=== PATIENT | female | born 1995 | race African-American/Black ===

== ENCOUNTER 2016-07-10 19:07 | Emergency (ER) | payer OTHER ==
[~2016-07-10 19:07] MED LIST: DOXY100T9 PO; METR500T PO
[2016-07-10 19:11] VITALS: BP 111/63
--- NOTE | 2016-07-10 19:42 | PHYS DOC ---
Past Medical History Past Medical History: No Pertinent History Past Surgical History: No Surgical History Alcohol Use: None Drug Use: None Adult General Chief Complaint Chief Complaint: VAGINAL PROBLEM HPI HPI Patient is a 20 year old female who presents with odorous vaginal discharge that began yesterday. Patient is concerned about STD and would like to be tested and treated. She would also like her IUD removed. She states she is in a cort[place] and would like this to take less than 1 hour. She works at [employer]. Review of Systems Review of Systems Constitutional: Denies fever or chills [] Eyes: Denies change in visual acuity, redness, or eye pain [] HENT: Denies nasal congestion or sore throat [] Respiratory: Denies cough or shortness of breath [] Cardiovascular: No additional information not addressed in HPI [] GI: Vaginal discharge : Denies dysuria or hematuria [] Musculoskeletal: Denies back pain or joint pain [] Integument: Denies rash or skin lesions [] Neurologic: Denies headache, focal weakness or sensory changes [] Endocrine: Denies polyuria or polydipsia [] Current Medications Current Medications Current Medications Medications (Trade) Dose Ordered Sig/Larissa Start Time Stop Time Status Last Admin Dose Admin Azithromycin (Zithromax) 1,000 mg 1X ONCE 07/10/16 19:45 07/10/16 19:46 DC 07/10/16 19:45 1,000 MG Ceftriaxone Sodium (Rocephin Im) 250 mg 1X ONCE 07/10/16 19:45 07/10/16 19:46 DC 07/10/16 19:45 250 MG Metronidazole (Flagyl) 2,000 mg 1X ONCE 07/10/16 19:45 07/10/16 19:46 DC 07/10/16 19:45 2,000 MG Allergies Allergies Allergies Coded Allergies Type Severity Reaction Last Updated Verified No Known Drug Allergies 08/08/13 No Physical Exam Physical Exam Constitutional: Well developed, well nourished, no acute distress, non-toxic appearance. [] HENT: Normocephalic, atraumatic, bilateral external ears normal, oropharynx moist, no oral exudates, nose normal. [] Eyes: PERRLA, EOMI, conjunctiva normal, no discharge. [] Neck: Normal range of motion, no tenderness, supple, no stridor. [] Cardiovascular:Heart rate regular rhythm, no murmur [] Lungs & Thorax: Bilateral breath sounds clear to auscultation [] Abdomen: Bowel sounds normal, soft, no tenderness, no masses, no pulsatile masses. [] Pelvic exam Left labia has mild swelling suspicious for Bartholin's cyst, patient is denying stating is probably a razor burn. Cervix is not well visualized. No CMT. mild amount of clear white vaginal discharge in exam. No adnexal tenderness. Skin: Warm, dry, no erythema, no rash. [] Back: No tenderness, no CVA tenderness. [] Extremities: No tenderness, no cyanosis, no clubbing, ROM intact, no edema. [] Neurologic: Alert and oriented X 3, normal motor function, normal sensory function, no focal deficits noted. [] Psychologic: Affect normal, judgement normal, mood normal. [] Current Patient Data Vital Signs Vital Signs Date Time Temp Pulse Resp B/P Pulse Ox O2 Delivery O2 Flow Rate FiO2 07/10/16 19:11 78 18 98 Room Air Lab Values Laboratory Tests Test 07/10/16 19:20 Urine Collection Type Unknown Urine Color Yellow Urine Clarity Cloudy Urine pH 5.5 Urine Specific [place] >=1.030 Urine Protein 100mg/dL (NEG-TRACE) Urine Glucose (UA) Negativemg/dL (NEG) Urine Ketones (Stick) Negativemg/dL (NEG) Urine Blood Negative (NEG) Urine Nitrite Negative (NEG) Urine Bilirubin Negative (NEG) Urine Urobilinogen Dipstick 0.2mg/dL (0.2 mg/dL) Urine Leukocyte Esterase Trace (NEG) Urine RBC 0/HPF (0-2) Urine WBC 11-20/HPF (0-4) Urine Squamous Epithelial Cells Many/LPF Urine Bacteria Mod/HPF (0-FEW) Urine Mucus Marked/LPF Microbiology 07/10/16 Wet Prep - Final, Complete EKG EKG [] Radiology/Procedures Radiology/Procedures [] Course & Med Decision Making Course & Med Decision Making Pertinent Labs and Imaging studies reviewed. (See chart for details) Patient is in the ED with vaginal discharge and concern for STDs. She is in a hurry stating she has to be seen and treated in one hour or less. We informed her we send specimens to lab for wet prep and UA and its up to them to do the test within reasonable time. She works at [employer]. She tested positive for Trichomonas. She was treated with azithromycin, Flagyl and Rocephin. She wanted her IUD removed. Informed her she needs to see her OB/ COUNSELING SPECIALIST for this. Urine analysis is negative for infection. Educated on safe sex practices. Dragon Disclaimer Dragon Disclaimer This electronic medical record was generated, in whole or in part, using a voice recognition dictation system. Departure Departure Impression: Primary Impression: Trichomonal vaginitis Disposition: HOME, SELF-CARE Condition: STABLE Referrals: NO PCP (PCP) JENA FUNES MD Follow-up in one week Patient Instructions: Sexually Transmitted Disease Additional Instructions: You were seen for STD concern, you tested positive for trichomonas and were. Please contact your sex partners, let them know you were treated for STDs and ask them to seek treatment too. Do not have sex for week. Follow-up with your OB /COUNSELING SPECIALIST to have the IUD removed if still interested in removing it. MERRILL ULRICH APRN Jul 10, 2016 19:42
[2016-07-10 19:45] LABS: BILIRUBIN,URINE NEGATIVE (NEG); GLUCOSE,URINE NEGATIVE (NEG); NITRITE,URINE NEGATIVE (NEG); PH,URINE 5.5; PROTEIN,URINE 100 mg/dL (NEG-TRACE); UROBILINOGEN,URINE 0.2 mg/dL (0.2 mg/dL)
[2016-07-10] MEDS ORDERED: METRONIDAZOLE 500 MG TABLET. PO ONE (19:45)
[2016-07-10] MEDS ORDERED: CEFTRIAXONE IM 250 MG VIAL. IM ONE (19:45)
[2016-07-10] MEDS ORDERED: AZITHROMYCIN 250 MG TABLET. PO ONE (19:45)
[2016-07-10 19:56] LABS: BACTERIA,URINE MOD /HPF (0-FEW); RBC,URINE 0 /HPF (0-2); SQUAMOUS EPITHELIAL CELL,UR MANY /LPF
== END 2016-07-10 20:06 | disposition home or self-care (01) ==
LOC: ER 19:07
DX: A59.01 Trichomonal vulvovaginitis (principal)
CPT/HCPCS: 81001; 81025; 87491; 87591; 96372; 99284; J0696; Q0111; Q0144

== ENCOUNTER 2016-07-20 18:46 | Emergency (ER) | payer OTHER ==
[~2016-07-20] VITALS: Ht 167.6 cm; Wt 63.5 kg
[2016-07-20] MEDS ORDERED: IV NORMAL SALINE 1000ML BAG 1,000 ML IV ONE (19:30)
[2016-07-20] MEDS ORDERED: ONDANSETRON PF 4 MG/2 ML VIAL. IV ONE (19:30)
[2016-07-20 19:33] LABS: BILIRUBIN,URINE NEGATIVE (NEG); GLUCOSE,URINE NEGATIVE (NEG); NITRITE,URINE NEGATIVE (NEG); PROTEIN,URINE 100 mg/dL (NEG-TRACE); UROBILINOGEN,URINE 0.2 mg/dL (0.2 mg/dL)
[2016-07-20 19:45] LABS: BACTERIA,URINE 0 /HPF (0-FEW); RBC,URINE 0 /HPF (0-2); SQUAMOUS EPITHELIAL CELL,UR MOD /LPF; WBC,URINE 20-40 /HPF (0-4)
[2016-07-20 19:49] LABS: CALCIUM 9.6 mg/dL (8.5-10.1); CREATININE 1.1 mg/dL (0.6-1.0); GFR 77.4; POTASSIUM 3.7 mmol/L (3.5-5.1)
[2016-07-20] MEDS ORDERED: CIPR250T30 PO (20:01)
[2016-07-20] MEDS ORDERED: ONDA4TAB10 SL (20:01)
--- NOTE | 2016-07-20 20:01 | PHYS DOC ---
Past Medical History Past Medical History: No Pertinent History Past Surgical History: No Surgical History Alcohol Use: None Drug Use: None Adult General Chief Complaint Chief Complaint: ABDOMINAL PAIN HPI HPI Patient is a 20 year old female who presents with diarrhea. The patient reports onset of symptoms this morning, numerous episodes of loose nonbloody stools today, associated with nausea & generalized abdominal discomfort. Denies fevers/chills, vomiting, dysuria/hematuria. Denies history of abdominal surgeries. Previously healthy, no PCP. Review of Systems Review of Systems Constitutional: Denies fever or chills Eyes: Denies change in visual acuity HENT: Denies nasal congestion or sore throat Respiratory: Denies cough or shortness of breath Cardiovascular: Denies chest pain or edema GI: Reports abdominal pain, nausea, and diarrhea, denies vomiting, bloody stools : Denies dysuria or hematuria Musculoskeletal: Denies back pain or joint pain Integument: Denies rash or skin lesions Neurologic: Denies headache, focal weakness or sensory changes Current Medications Current Medications Current Medications Medications (Trade) Dose Ordered Sig/Larissa Start Time Stop Time Status Last Admin Dose Admin Ondansetron HCl (Zofran) 4 mg 1X ONCE 07/20/16 19:30 07/20/16 19:31 DC 07/20/16 19:29 4 MG Sodium Chloride (Iv Sodium Chloride 0.9% 1000ml Bag) 1,000 ml @ 1,000 mls/hr 1X ONCE 07/20/16 19:30 07/20/16 20:29 DC 07/20/16 19:28 1,000 MLS/HR Allergies Allergies Allergies Coded Allergies Type Severity Reaction Last Updated Verified No Known Drug Allergies 08/08/13 No Physical Exam Physical Exam Constitutional: Well developed, well nourished, no acute distress, non-toxic appearance. HENT: Normocephalic, atraumatic, bilateral external ears normal, oropharynx moist, nose normal. Eyes: PERRLA, EOMI, conjunctiva normal, no discharge. Neck: supple, no stridor. Cardiovascular: RRR, no murmurs, no edema. Lungs & Thorax: LCTAB, no wheezing, no respiratory distress. Abdomen: normal bowel sounds, soft, nontender, no rebound/guarding, no masses or pulsatile masses, nondistended. Skin: Warm, dry, no erythema, no rash. Back: No CVA tenderness. Extremities: No tenderness, no edema. Neurologic: Alert and oriented X 3, no focal deficits noted. Psychologic: Affect normal, judgement normal, mood normal. Current Patient Data Vital Signs Vital Signs Date Time Temp Pulse Resp B/P Pulse Ox O2 Delivery O2 Flow Rate FiO2 07/20/16 20:25 88 18 122/71 100 Room Air 07/20/16 19:00 99.4 99.4 Lab Values Laboratory Tests Test 07/20/16 18:07 07/20/16 19:00 POC Urine HCG, Qualitative Hcg negative (Negative) Urine Collection Type Unknown Urine Color Yellow Urine Clarity Clear Urine pH 6.0 Urine Specific [place] 1.025 Urine Protein 100mg/dL (NEG-TRACE) Urine Glucose (UA) Negativemg/dL (NEG) Urine Ketones (Stick) Negativemg/dL (NEG) Urine Blood Negative (NEG) Urine Nitrite Negative (NEG) Urine Bilirubin Negative (NEG) Urine Urobilinogen Dipstick 0.2mg/dL (0.2 mg/dL) Urine Leukocyte Esterase Small (NEG) Urine RBC 0/HPF (0-2) Urine WBC 20-40/HPF (0-4) Urine Squamous Epithelial Cells Mod/LPF Urine Transitional Epithelial Cells Few/LPF Urine Bacteria 0/HPF (0-FEW) Urine Mucus Marked/LPF Sodium Level 139mmol/L (136-145) Potassium Level 3.7mmol/L (3.5-5.1) Chloride Level 102mmol/L (98-107) Carbon Dioxide Level 28mmol/L (21-32) Anion Gap 9 (6-14) Blood Urea Nitrogen 12mg/dL (7-20) Creatinine 1.1mg/dL (0.6-1.0) H Estimated GFR (Cockcroft-Gault) 77.4 Glucose Level 95mg/dL (70-99) Calcium Level 9.6mg/dL (8.5-10.1) Laboratory Tests 07/20/16 19:00 EKG EKG [] Radiology/Procedures Radiology/Procedures [] Course & Med Decision Making Course & Med Decision Making Pertinent Labs and Imaging studies reviewed. (See chart for details) The patient presents with diarrhea. No focal abdominal pain on exam. Mildly tachycardic upon arrival. Gave IV fluids and Zofran. Urine specimen been contaminated but suggestive of UTI, we'll treat with her presenting symptoms. She felt better after treatment here, able to tolerate oral intake. She was comfortable with discharge home. Gave prescriptions for Cipro and Zofran. Recommend rest, by mouth hydration with clear liquids, follow-up with primary care physician in 2-3 days if not improving, gave referral to Dr. Reeder. Return to the emergency department for high fever, severe pain, uncontrolled vomiting, any otherwise worsening condition. Discharged home in stable condition. [] Dragon Disclaimer Dragon Disclaimer This electronic medical record was generated, in whole or in part, using a voice recognition dictation system. Departure Departure Impression: Primary Impression: Nausea & vomiting Additional Impression: Urinary tract infection Disposition: HOME, SELF-CARE Condition: STABLE Referrals: NO PCP (PCP) AJAY REEDER MD Patient Instructions: Diarrhea, [id number], Nausea and Vomiting, [id number] , Urinary Tract Infection, [id number] Additional Instructions: You were seen in the emergency department today for diarrhea. The lab tests did not show any significant problems. You do have a urinary tract infection. Please take the prescribed antibiotic. Use Zofran as needed for nausea. Drink small sips of clear liquids to stay hydrated. Follow-up with Dr. Reeder in the primary care clinic in 2-3 days if not improving. Return to the emergency department for high fever, severe abdominal pain, uncontrolled vomiting, any otherwise worsening condition. Scripts Ciprofloxacin Hcl (Cipro)250 Mg Tablet1 Tab PO BID #6 TAB Prov:OMAYRA CHILDRESS MD 07/20/16 Ondansetron (Zofran Odt)4 Mg Tab.rapdis1 Tab SL Q8HRS PRN NAUSEA #10 TAB Prov:OMAYRA CHILDRESS MD 07/20/16 Problem Qualifiers OMAYRA CHILDRESS MD Jul 20, 2016 20:01
[2016-07-20 20:25] VITALS: BP 122/71
== END 2016-07-20 20:31 | disposition home or self-care (01) ==
LOC: ER 18:46
DX: N39.0 Urinary tract infection, site not specified (principal); R19.7 Diarrhea, unspecified
CPT/HCPCS: 36415; 80048; 81001; 81025; 87086; 96361; 96374; 99284; J2405; J7030

== ENCOUNTER 2016-08-10 12:04 | Emergency (ER) | payer OTHER ==
[~2016-08-10] VITALS: Ht 175.3 cm; Wt 60.1 kg
[~2016-08-10 12:04] MED LIST changes: +CIPR250T30 PO; +ONDA4TAB10 SL
[2016-08-10 12:20] VITALS: BP 109/71
[2016-08-10] MEDS ORDERED: ONDA4TAB10 SL (12:23)
--- NOTE | 2016-08-10 12:23 | PHYS DOC ---
Past Medical History Past Medical History: No Pertinent History Past Surgical History: No Surgical History Alcohol Use: None Drug Use: None Adult General Chief Complaint Chief Complaint: NAUSEA/VOMITING/DIARRHA HPI HPI Patient is a 20 year old female who presents with 1 episode of nonbloody nonbilious emesis associated with an episode of nonbloody diarrhea that started just prior to arrival. She has mild general abdominal bubbling and cramping. She notes some mild current nausea. She denies dysuria, hematuria, constipation , fever or chills, sick contacts, recent travel. Review of Systems Review of Systems Constitutional: Denies fever or chills [] Eyes: Denies change in visual acuity, redness, or eye pain [] HENT: Denies nasal congestion or sore throat [] Respiratory: Denies cough or shortness of breath [] Cardiovascular: No additional information not addressed in HPI [] GI: Denies bloody stools or bloody emesis [] : Denies dysuria or hematuria [] Musculoskeletal: Denies back pain or joint pain [] Integument: Denies rash or skin lesions [] Neurologic: Denies headache, focal weakness or sensory changes [] Endocrine: Denies polyuria or polydipsia [] Current Medications Current Medications Current Medications Medications (Trade) Dose Ordered Sig/Larissa Start Time Stop Time Status Last Admin Dose Admin Ondansetron HCl (Zofran Odt) 4 mg 1X ONCE 08/10/16 12:30 08/10/16 12:31 DC 08/10/16 12:38 4 MG Allergies Allergies Allergies Coded Allergies Type Severity Reaction Last Updated Verified No Known Drug Allergies 08/08/13 No Physical Exam Physical Exam Constitutional: Well developed, well nourished, no acute distress, non-toxic appearance. [] HENT: Normocephalic, atraumatic, bilateral external ears normal, oropharynx moist, nose normal. [] Eyes: PERRLA, EOMI. [] Neck: Normal range of motion, supple. [] Cardiovascular:Heart rate regular rhythm [] Lungs & Thorax: Bilateral breath sounds clear to auscultation [] Abdomen: Bowel sounds normal, soft, no tenderness. [] Skin: Warm, dry, no erythema, no rash. [] Back: No tenderness, no CVA tenderness. [] Extremities: No tenderness, ROM intact, no edema. [] Neurologic: Alert and oriented X 3, normal motor function, normal sensory function, no focal deficits noted. [] Psychologic: Affect normal, judgement normal, mood normal. [] Current Patient Data Vital Signs Vital Signs Date Time Temp Pulse Resp B/P (MAP) Pulse Ox O2 Delivery O2 Flow Rate FiO2 08/10/16 12:20 98.2 77 16 98 Room Air 98.2 Lab Values Laboratory Tests Test 08/10/16 11:29 POC Urine HCG, Qualitative Hcg negative (Negative) Course & Med Decision Making Course & Med Decision Making Discussed supportive care. Return precautions given. She understands and agrees with plan. Dragon Disclaimer Dragon Disclaimer This electronic medical record was generated, in whole or in part, using a voice recognition dictation system. Departure Departure Impression: Primary Impression: Nausea vomiting and diarrhea Disposition: 01 HOME, SELF-CARE Condition: STABLE Referrals: NO PCP (PCP) Patient Instructions: Nausea and Vomiting, [id number] Additional Instructions: Take zofran as needed for nausea. Take Imodium as needed for diarrhea. Drink liquids to stay hydrated. Follow up with your primary care doctor. Return for any concerns. Scripts Ondansetron (ZOFRAN ODT) 4 Mg Tab.rapdis 1 TAB SL Q8HRS Y for NAUSEA, #10 TAB Prov: Gabriella GOMES MD 08/10/16 Gabriella GOMES MD August 10, 2016 12:23
[2016-08-10] MEDS ORDERED: ONDANSETRON ODT 4 MG TAB.RAPDIS. PO ONE (12:30)
== END 2016-08-10 12:38 | disposition home or self-care (01) ==
LOC: ER 12:38
DX: R11.2 Nausea with vomiting, unspecified (principal); R19.7 Diarrhea, unspecified
CPT/HCPCS: 84703; 99283; Q0162; 81025

== ENCOUNTER 2016-12-07 08:41 | Emergency (ER) | payer OTHER ==
[~2016-12-07] VITALS: Ht 165.1 cm; Wt 61.2 kg
--- NOTE | 2016-12-07 09:27 | PHYS DOC ---
Past Medical History Past Medical History: No Pertinent History Past Surgical History: No Surgical History Alcohol Use: None Drug Use: None Adult General Chief Complaint Chief Complaint: VAGINAL PROBLEM HPI HPI Patient is a 20 year old male who presents with vaginal discharge for the past several days. Vaginal discharge is described as light hannah malodorous. It is associated with mild cramping and burning. Measuring frequency and urgency. No flank pain, hematuria, nausea vomiting or sweats. Patient's last menstrual period was one week ago. Patient is not currently on control. Patient has previously been treated for bacterial vaginosis and Trichomonas mydriasis. She is concerned about possible STD exposure and is in the emergency department with her partner who is also being treated. Review of Systems Review of Systems ROS as per HPI. All other ROS are negative. Current Medications Current Medications Current Medications Medications (Trade) Dose Ordered Sig/Larissa Start Time Stop Time Status Last Admin Dose Admin Azithromycin (Zithromax) 1,000 mg 1X ONCE 12/07/16 10:30 12/07/16 10:31 DC 12/07/16 10:40 1,000 MG Ceftriaxone Sodium (Rocephin Im) 250 mg 1X ONCE 12/07/16 10:30 12/07/16 10:31 DC 12/07/16 10:38 250 MG Allergies Allergies Allergies Coded Allergies Type Severity Reaction Last Updated Verified No Known Drug Allergies 08/08/13 No Physical Exam Physical Exam Constitutional: Well developed, well nourished, no acute distress, non-toxic appearance. [] HENT: Normocephalic, atraumatic, bilateral external ears normal, oropharynx moist, no oral exudates, nose normal. [] Eyes: PERRLA, EOMI, conjunctiva normal, no discharge. [] Neck: Normal range of motion, no tenderness, supple, no stridor. [] Cardiovascular:Heart rate regular rhythm, no murmur [] Lungs & Thorax: Bilateral breath sounds clear to auscultation [] Abdomen: Bowel sounds normal, soft, no tenderness. , no external lesions, vaginal start, thick hannah copious, malodorous. Cervix closed, no lesions. [] Skin: Warm, dry, no erythema, no rash. [] Back: No tenderness. [] Extremities: No tenderness, no cyanosis, no clubbing, ROM intact, no edema. [] Neurologic: Alert and oriented X 3, normal motor function, normal sensory function, no focal deficits noted. [] Psychologic: Affect normal, judgement normal, mood normal. [] Current Patient Data Vital Signs Vital Signs Date Time Temp Pulse Resp B/P (MAP) Pulse Ox O2 Delivery O2 Flow Rate FiO2 12/07/16 10:41 66 18 118/83 (95) 98 Room Air Lab Values Laboratory Tests Test 12/07/16 09:24 POC Urine HCG, Qualitative Hcg negative (Negative) Microbiology 12/07/16 Wet Prep - Final, Complete EKG EKG [] Radiology/Procedures Radiology/Procedures [] Course & Med Decision Making Course & Med Decision Making Pertinent Labs and Imaging studies reviewed. (See chart for details) [Clue cells present on wet prep. Empiric treatment for possible STD exposure provided. Vital discharge patient home with prescription for Flagyl with PCP/ health Department follow-up. Return precautions reviewed.] Dragon Disclaimer Dragon Disclaimer This electronic medical record was generated, in whole or in part, using a voice recognition dictation system. Departure Departure Impression: Primary Impression: Bacterial vaginosis Disposition: 01 HOME, SELF-CARE Condition: GOOD Referrals: NO PCP (PCP) Patient Instructions: Bacterial Vaginosis, [id number] Additional Instructions: You were evaluated emergency department for vaginal discharge. Initial results show bacterial vaginosis an over growth of normal vaginal bacteria. MARIUSZ ALTAMIRANO DO Dec 07, 2016 09:27
[2016-12-07] MEDS ORDERED: AZITHROMYCIN 250 MG TABLET. PO ONE (10:30)
[2016-12-07] MEDS ORDERED: cefTRIAXone IM 250 MG VIAL IM ONE (10:30)
[2016-12-07 10:41] VITALS: BP 118/83
== END 2016-12-07 10:58 | disposition home or self-care (01) ==
LOC: ER 08:41
DX: N76.0 Acute vaginitis (principal); B96.89 Other specified bacterial agents as the cause of diseases classified elsewhere; R35.0 Frequency of micturition; R39.15 Urgency of urination
CPT/HCPCS: 81025; 87491; 87591; 96372; 99284; J0696; Q0111; Q0144

== ENCOUNTER 2017-03-03 19:29 | Emergency (ER) | payer OTHER ==
[2017-03-03 20:01] VITALS: BP 123/56
[2017-03-03 20:19] LABS: BILIRUBIN,URINE NEGATIVE (NEG); GLUCOSE,URINE NEGATIVE (NEG); NITRITE,URINE NEGATIVE (NEG); PROTEIN,URINE 30 mg/dL (NEG-TRACE); UROBILINOGEN,URINE 0.2 mg/dL (0.2 mg/dL)
[2017-03-03 20:29] LABS: BACTERIA,URINE FEW /HPF (0-FEW); RBC,URINE 0 /HPF (0-2); SQUAMOUS EPITHELIAL CELL,UR MOD /LPF
[2017-03-03 20:34] LABS: NEG OBC UR NEG; POS OBC UR POS
--- NOTE | 2017-03-03 20:54 | PHYS DOC ---
Past Medical History Past Medical History: No Pertinent History Past Surgical History: No Surgical History Alcohol Use: None Drug Use: None Adult General Chief Complaint Chief Complaint: ABDOMINAL PAIN [facility] HPI Patient is a 21 year old female who presents with brought hour history of abdominal pain that has since resolved and she has no complaints of abdominal pain at this time. Positive test at home with last menstrual period approximately 6 weeks ago. History . Denies any vaginal bleeding or discharge. Reports occasional nausea but no vomiting or diarrhea. No fever. Review of Systems Review of Systems Constitutional: Denies fever or chills [] Eyes: Denies change in visual acuity, redness, or eye pain [] HENT: Denies nasal congestion or sore throat [] Respiratory: Denies cough or shortness of breath [] Cardiovascular: No additional information not addressed in HPI [] GI: Denies abdominal pain, nausea, vomiting, bloody stools or diarrhea [] : Denies dysuria or hematuria [] Musculoskeletal: Denies back pain or joint pain [] Integument: Denies rash or skin lesions [] Neurologic: Denies headache, focal weakness or sensory changes [] Endocrine: Denies polyuria or polydipsia [] All other systems were reviewed and found to be within normal limits, except as documented in this note. Allergies Allergies Allergies Coded Allergies Type Severity Reaction Last Updated Verified No Known Drug Allergies 08/08/13 No Physical Exam Physical Exam Constitutional: Well developed, well nourished, no acute distress, non-toxic appearance. [] HENT: Normocephalic, atraumatic, bilateral external ears normal, oropharynx moist, no oral exudates, nose normal. [] Eyes: PERRLA, EOMI, conjunctiva normal, no discharge. [] Neck: Normal range of motion, no tenderness, supple, no stridor. [] Cardiovascular:Heart rate regular rhythm, no murmur [] Lungs & Thorax: Bilateral breath sounds clear to auscultation [] Abdomen: Bowel sounds normal, soft, no tenderness, no masses, no pulsatile masses. Completely nontender to palpation in the pelvis or right upper quadrant. [] Skin: Warm, dry, no erythema, no rash. [] Back: No tenderness, no CVA tenderness. [] Extremities: No tenderness, no cyanosis, no clubbing, ROM intact, no edema. [] Neurologic: Alert and oriented X 3, normal motor function, normal sensory function, no focal deficits noted. [] Psychologic: Affect normal, judgement normal, mood normal. [] Current Patient Data Vital Signs Vital Signs Date Time Temp Pulse Resp B/P (MAP) Pulse Ox O2 Delivery O2 Flow Rate FiO2 03/03/17 20:01 98.6 78 18 123/56 (78) 98 98.6 03/03/17 19:52 Room Air Lab Values Laboratory Tests Test 03/03/17 19:31 Urine Collection Type Unknown Urine Color Yellow Urine Clarity Clear Urine pH 6.0 Urine Specific [place] 1.020 Urine Protein 30 mg/dL (NEG-TRACE) Urine Glucose (UA) Negative mg/dL (NEG) Urine Ketones (Stick) Negative mg/dL (NEG) Urine Blood Negative (NEG) Urine Nitrite Negative (NEG) Urine Bilirubin Negative (NEG) Urine Urobilinogen Dipstick 0.2 mg/dL (0.2 mg/dL) Urine Leukocyte Esterase Negative (NEG) Urine RBC 0 /HPF (0-2) Urine WBC 1-4 /HPF (0-4) Urine Squamous Epithelial Cells Mod /LPF Urine Bacteria Few /HPF (0-FEW) Urine Mucus Marked /LPF Urine Test Positive (NEG) EKG EKG [] Radiology/Procedures Radiology/Procedures [] Course & Med Decision Making Course & Med Decision Making Pertinent Labs and Imaging studies reviewed. (See chart for details) Based on her physical exam with lack of any abdominal findings and history of no bleeding or discharge: no indication for pelvic sono at this moment in time. [Patient failed to wait for her urinalysis results and reexamination of her abdomen which may have changed her workup.] Dragon Disclaimer Dragon Disclaimer This electronic medical record was generated, in whole or in part, using a voice recognition dictation system. Departure Departure Impression: Primary Impression: Pelvic pain Additional Impression: Disposition: 01 HOME, SELF-CARE Condition: STABLE Referrals: NO PCP (PCP) Patient Instructions: Pelvic Pain, Female, [id number], Problem Qualifiers NANY HOUSER MD Mar 03, 2017 20:54
== END 2017-03-03 20:39 | disposition home or self-care (01) ==
LOC: ER 19:29
DX: O26.891 Other specified pregnancy related conditions, first trimester (principal); R10.2 Pelvic and perineal pain; R11.0 Nausea; R10.11 Right upper quadrant pain; Z3A.01 Less than 8 weeks gestation of pregnancy
CPT/HCPCS: 81001; 81025; 99284

== ENCOUNTER 2017-07-16 07:12 | Emergency (ER) | payer OTHER | END 2017-07-16 07:40 | disposition home or self-care (01) | LOC: ER 07:12 | DX: O98.812 Other maternal infectious and parasitic diseases complicating pregnancy, second trimester (principal); B37.3 Candidiasis of vulva and vagina; Z3A.26 26 weeks gestation of pregnancy | CPT/HCPCS: 99283 ==

== ENCOUNTER 2017-12-08 10:26 | Emergency (ER) | payer OTHER ==
[~2017-12-08] VITALS: Ht 165.1 cm; Wt 71.2 kg
[~2017-12-08 10:26] MED LIST changes: +MICO1KIT75 VG
[2017-12-08 12:09] VITALS: BP 122/59
[2017-12-08] MEDS ORDERED: METR500T8 PO (12:20)
--- NOTE | 2017-12-08 12:21 | PHYS DOC ---
Past Medical History Past Medical History: STD Past Surgical History: No Surgical History Alcohol Use: None Drug Use: None Adult General Chief Complaint Chief Complaint: SEXUALLY TRANSMITTED DISEASE HPI HPI Patient is a 21 year old female who presents with history of BV and was just treated for BV and Yeast by her doctor at with the name of Dr. Chavez. Patient states she still at same fishy odor smell she called her doctor today but her doctor had not called her back so she got impatient. Patient states that her doctor told her that if it didn't go away to call and go back. Review of Systems Review of Systems Constitutional: Denies fever or chills [] Eyes: Denies change in visual acuity, redness, or eye pain [] HENT: Denies nasal congestion or sore throat [] Respiratory: Denies cough or shortness of breath [] Cardiovascular: No additional information not addressed in HPI [] GI: Denies abdominal pain, nausea, vomiting, bloody stools or diarrhea [] : Denies dysuria or hematuria. Vaginal fishy odor smell and discharge. [] Musculoskeletal: Denies back pain or joint pain [] Integument: Denies rash or skin lesions [] Neurologic: Denies headache, focal weakness or sensory changes [] Endocrine: Denies polyuria or polydipsia [] All other systems were reviewed and found to be within normal limits, except as documented in this note. Current Medications Current Medications Current Medications Medications (Trade) Dose Ordered Sig/Larissa Start Time Stop Time Status Last Admin Dose Admin Azithromycin (Zithromax) 1,000 mg 1X ONCE 12/08/17 13:15 12/08/17 13:16 DC Ceftriaxone Sodium (Rocephin Im) 250 mg 1X ONCE 12/08/17 13:15 12/08/17 13:16 DC Allergies Allergies Allergies Coded Allergies Type Severity Reaction Last Updated Verified No Known Drug Allergies 08/08/13 No Physical Exam Physical Exam Constitutional: Well developed, well nourished, no acute distress, non-toxic appearance. [] HENT: Normocephalic, atraumatic, bilateral external ears normal, oropharynx moist, no oral exudates, nose normal. [] Eyes: PERRLA, EOMI, conjunctiva normal, no discharge. [] Neck: Normal range of motion, no tenderness, supple, no stridor. [] Cardiovascular:Heart rate regular rhythm, no murmur [] Lungs & Thorax: Bilateral breath sounds clear to auscultation [] Abdomen: Bowel sounds normal, soft, no tenderness, no masses, no pulsatile masses. [] Skin: Warm, dry, no erythema, no rash. [] Back: No tenderness, no CVA tenderness. [] Extremities: No tenderness, no cyanosis, no clubbing, ROM intact, no edema. [] Neurologic: Alert and oriented X 3, normal motor function, normal sensory function, no focal deficits noted. [] Psychologic: Affect normal, judgement normal, mood normal. [] Current Patient Data Vital Signs Vital Signs Date Time Temp Pulse Resp B/P (MAP) Pulse Ox O2 Delivery O2 Flow Rate FiO2 12/08/17 12:09 98.6 95 12 122/59 (80) 96 Room Air 98.6 Lab Values Laboratory Tests Test 12/08/17 12:29 Urine Collection Type Unknown Urine Color Rayne Urine Clarity Clear Urine pH 6.0 Urine Specific [place] >=1.030 Urine Protein 30 mg/dL (NEG-TRACE) Urine Glucose (UA) Negative mg/dL (NEG) Urine Ketones (Stick) Trace mg/dL (NEG) Urine Blood Large (NEG) Urine Nitrite Negative (NEG) Urine Bilirubin Negative (NEG) Urine Urobilinogen Dipstick 0.2 mg/dL (0.2 mg/dL) Urine Leukocyte Esterase Small (NEG) Urine RBC 6-10 /HPF (0-2) Urine WBC 5-10 /HPF (0-4) Urine Squamous Epithelial Cells Mod /LPF Urine Transitional Epithelial Cells /LPF Urine Bacteria Few /HPF (0-FEW) Urine Mucus Mod /LPF EKG EKG [] Radiology/Procedures Radiology/Procedures [] Course & Med Decision Making Course & Med Decision Making Patient is a 21 year old female who presents with history of BV and was just treated for BV and Yeast by her doctor at with the name of Dr. Vo. Patient states she still at same fishy odor smell she called her doctor today but her doctor had not called her back so she got impatient. Patient states that her doctor told her that if it didn't go away to call and go back. Patient' s urinalysis was contaminated showed no Trichomonas. Patient is treated prophylactically for STDs even though she states that she has not think that that is a possibility. Patient states that her doctor at just tested her for STDs and it was negative. Patient is given a prescription for metronidazole in her urine is sent off for gonorrhea and chlamydia. Patients abdomen is soft and nontender. Patient is afebrile. Patient denies any urinary symptoms. Patient denies any pelvic pain or abdominal pain. Patient is stable and told to follow- up with her physician. Patient was not wanting a pelvic exam and states it was all just done by her BANJO REPAIRER. [] Dragon Disclaimer Dragon Disclaimer This electronic medical record was generated, in whole or in part, using a voice recognition dictation system. Departure Departure Impression: Primary Impression: Bacterial vaginosis Disposition: HOME, SELF-CARE Condition: STABLE Referrals: NO PCP (PCP) Patient Instructions: Bacterial Vaginosis Additional Instructions: Follow up with your doctor as soon as possible. Scripts Metronidazole (METRONIDAZOLE) 500 Mg Tablet 1 TAB PO BID, #14 TAB Prov: LUIS DAVISON APRN 12/08/17 LUIS DAIVSON APRN Dec 08, 2017 12:20
[2017-12-08 12:37] LABS: BILIRUBIN,URINE NEGATIVE (NEG); CLARITY,URINE CLEAR; COLOR,URINE AMBER; NITRITE,URINE NEGATIVE (NEG); PROTEIN,URINE 30 mg/dL (NEG-TRACE); UROBILINOGEN,URINE 0.2 mg/dL (0.2 mg/dL)
[2017-12-08 12:44] LABS: SQUAMOUS EPITHELIAL CELL,UR MOD /LPF
[2017-12-08 12:45] LABS: BACTERIA,URINE FEW /HPF (0-FEW)
[2017-12-08] MEDS ORDERED: AZITHROMYCIN 250 MG TABLET. PO ONE (13:15)
[2017-12-08] MEDS ORDERED: cefTRIAXone IM 250 MG VIAL IM ONE (13:15)
== END 2017-12-08 13:17 | disposition home or self-care (01) ==
LOC: ER 10:26
DX: N76.0 Acute vaginitis (principal); B96.89 Other specified bacterial agents as the cause of diseases classified elsewhere
CPT/HCPCS: 81001; 87086; 87491; 87591; 99284

== ENCOUNTER 2018-02-04 18:34 | Emergency (ER) | payer OTHER ==
[~2018-02-04] VITALS: Ht 172.7 cm; Wt 71.2 kg
[~2018-02-04 18:34] MED LIST changes: +METR-84 PO
[2018-02-04 19:00] VITALS: BP 125/76
[2018-02-04] MEDS ORDERED: cefTRIAXone IM 250 MG VIAL IM ONE (19:45)
[2018-02-04] MEDS ORDERED: AZITHROMYCIN 250 MG TABLET. PO ONE (19:45)
--- NOTE | 2018-02-04 20:07 | PHYS DOC ---
Past Medical History Past Medical History: STD Additional Past Medical Histor: TRICH Past Surgical History: No Surgical History Alcohol Use: None Drug Use: None Adult General Chief Complaint Chief Complaint: SEXUALLY TRANSMITTED DISEASE HPI HPI Patient is a 22 year old female who presents with a fear of ernst a sexually transmitted disease. The patient states that she received a phone call from her partners significant other. The woman informed her that her partner is been bringing home sexually transmitted diseases and that she tested positive for herpes approximately a year ago. The patient presented to the emergency department to be evaluated. She denies any rashes or outbreaks. She does have some mild vaginal discharge. She denies any possibility of . Review of Systems Review of Systems Constitutional: Denies fever or chills [] Respiratory: Denies cough or shortness of breath [] Cardiovascular: No additional information not addressed in HPI [] GI: Denies abdominal pain, nausea, vomiting, bloody stools or diarrhea [] : See history of present illness Musculoskeletal: Denies back pain or joint pain [] Integument: Denies rash or skin lesions [] Neurologic: Denies headache, focal weakness or sensory changes [] Endocrine: Denies polyuria or polydipsia [] All other systems were reviewed and found to be within normal limits, except as documented in this note. Current Medications Current Medications Current Medications Medications (Trade) Dose Ordered Sig/Larissa Start Time Stop Time Status Last Admin Dose Admin Azithromycin (Zithromax) 1,000 mg 1X ONCE 02/04/18 19:45 02/04/18 19:46 DC 02/04/18 19:53 1,000 MG Ceftriaxone Sodium (Rocephin Im) 250 mg 1X ONCE 02/04/18 19:45 02/04/18 19:46 DC 02/04/18 19:54 250 MG Allergies Allergies Allergies Coded Allergies Type Severity Reaction Last Updated Verified No Known Drug Allergies 08/08/13 No Physical Exam Physical Exam Constitutional: Well developed, well nourished, no acute distress, non-toxic appearance. [] Neck: Normal range of motion, no tenderness, supple, no stridor. [] Cardiovascular:Heart rate regular rhythm, no murmur [] Lungs & Thorax: Bilateral breath sounds clear to auscultation [] Abdomen: Bowel sounds normal, soft, no tenderness, no masses, no pulsatile masses. [] Skin: Warm, dry, no erythema, no rash. [] Back: No tenderness, no CVA tenderness. [] Extremities: No tenderness, no cyanosis, no clubbing, ROM intact, no edema. [] Neurologic: Alert and oriented X 3, normal motor function, normal sensory function, no focal deficits noted. [] Psychologic: Affect normal, judgement normal, mood normal. [] Pelvic Exam: Combination Machine Tool Operator present Abdomen: Nontender External Genitalia: Normal Skin Speculum: Normal vaginal mucosa, light brown cervical discharge Bimanual: No adnexal masses or tenderness, mild CMT Current Patient Data Vital Signs Vital Signs Date Time Temp Pulse Resp B/P (MAP) Pulse Ox O2 Delivery O2 Flow Rate FiO2 02/04/18 19:00 100.8 93 20 125/76 (92) 98 Room Air 100.8 Lab Values Microbiology 02/04/18 Wet Prep - Final, Complete EKG EKG [] Radiology/Procedures Radiology/Procedures [] Course & Med Decision Making Course & Med Decision Making Pertinent Labs and Imaging studies reviewed. (See chart for details) []The patient was given Rocephin and Zithromax in the emergency department. She has been counseled to abstain from sexual activity for 2 weeks to allow time for the antibiotics to work. She was informed that we will only call her if the cultures are positive. She is in agreement with this plan. Dragon Disclaimer Dragon Disclaimer This electronic medical record was generated, in whole or in part, using a voice recognition dictation system. Departure Departure Impression: Primary Impression: Concern about STD in female without diagnosis Disposition: 01 HOME, SELF-CARE Condition: STABLE Referrals: NO PCP (PCP) Patient Instructions: Sexually Transmitted Disease Additional Instructions: Your presumptively treated in the emergency department. Abstain from sexual activity for 2 weeks to allow time for the antibiotics to work. Follow-up with her poly area supervisor for future healthcare needs. KM AUSTIN APRN Feb 04, 2018 20:07
[2018-02-06 23:13] LABS: GC PROBE Negative (Negative)
== END 2018-02-04 20:12 | disposition home or self-care (01) ==
LOC: ER 18:34
DX: Z20.2 Contact with and (suspected) exposure to infections with a predominantly sexual mode of transmission (principal); N89.8 Other specified noninflammatory disorders of vagina
CPT/HCPCS: 87491; 87591; 96372; 99284; J0696; Q0111; Q0144

== ENCOUNTER 2018-03-23 13:07 | Emergency (ER) | payer OTHER ==
[~2018-03-23] VITALS: Ht 165.1 cm; Wt 64.4 kg
[2018-03-23 13:48] VITALS: BP 105/56
[2018-03-23 13:59] LABS: BILIRUBIN,URINE NEGATIVE (NEG); CLARITY,URINE CLEAR; COLOR,URINE YELLOW; NITRITE,URINE NEGATIVE (NEG); PH,URINE 6.5; PROTEIN,URINE 30 mg/dL (NEG-TRACE); UROBILINOGEN,URINE 0.2 mg/dL (0.2 mg/dL)
[2018-03-23] MEDS ORDERED: AZITHROMYCIN 250 MG TABLET. PO ONE (14:00)
[2018-03-23] MEDS ORDERED: metroNIDAZOLE 500 MG TABLET PO ONE (14:00)
[2018-03-23] MEDS ORDERED: cefTRIAXone IM 250 MG VIAL IM ONE (14:00)
--- NOTE | 2018-03-23 14:11 | PHYS DOC ---
Past Medical History Past Medical History: STD Additional Past Medical Histor: TRICH Past Surgical History: No Surgical History Alcohol Use: None Drug Use: None Adult General Chief Complaint Chief Complaint: SEXUALLY TRANSMITTED DISEASE HPI HPI Patient is a 22 year old female who presents with concerns for STDs, patient is in the ED with the boyfriend who is being treated as well. None of them have symptoms. Review of Systems Review of Systems Constitutional: Denies fever or chills [] Eyes: Denies change in visual acuity, redness, or eye pain [] HENT: Denies nasal congestion or sore throat [] Respiratory: Denies cough or shortness of breath [] Cardiovascular: No additional information not addressed in HPI [] GI: Denies abdominal pain, nausea, vomiting, bloody stools or diarrhea [] : Concern for STDs. Denies dysuria or hematuria [] Musculoskeletal: Denies back pain or joint pain [] Integument: Denies rash or skin lesions [] Neurologic: Denies headache, focal weakness or sensory changes [] All other systems were reviewed and found to be within normal limits, except as documented in this note. Current Medications Current Medications Current Medications Medications (Trade) Dose Ordered Sig/Larissa Start Time Stop Time Status Last Admin Dose Admin Azithromycin (Zithromax) 1,000 mg 1X ONCE 03/23/18 14:00 03/23/18 14:01 DC Ceftriaxone Sodium (Rocephin Im) 250 mg 1X ONCE 03/23/18 14:00 03/23/18 14:01 DC Metronidazole (Flagyl) 2,000 mg 1X ONCE 03/23/18 14:00 03/23/18 14:01 DC Allergies Allergies Allergies Coded Allergies Type Severity Reaction Last Updated Verified No Known Drug Allergies 08/08/13 No Physical Exam Physical Exam Constitutional: Well developed, well nourished, no acute distress, non-toxic appearance. [] HENT: Normocephalic, atraumatic, bilateral external ears normal, oropharynx moist, no oral exudates, nose normal. [] Eyes: PERRLA, EOMI, conjunctiva normal, no discharge. [] Neck: Normal range of motion, no tenderness, supple, no stridor. [] Cardiovascular:Heart rate regular rhythm, no murmur [] Lungs & Thorax: Bilateral breath sounds clear to auscultation [] Abdomen: Bowel sounds normal, soft, no tenderness, no masses, no pulsatile masses. [] Skin: Warm, dry, no erythema, no rash. [] Back: No tenderness, no CVA tenderness. [] Extremities: No tenderness, no cyanosis, no clubbing, ROM intact, no edema. [] Neurologic: Alert and oriented X 3, normal motor function, normal sensory function, no focal deficits noted. [] Psychologic: Affect normal, judgement normal, mood normal. [] Current Patient Data Vital Signs Vital Signs Date Time Temp Pulse Resp B/P (MAP) Pulse Ox O2 Delivery O2 Flow Rate FiO2 03/23/18 13:48 98.7 66 16 105/56 (72) 99 Room Air 98.7 Lab Values Laboratory Tests Test 03/23/18 13:31 03/23/18 13:39 Urine Collection Type Unknown Urine Color Yellow Urine Clarity Clear Urine pH 6.5 Urine Specific [place] >=1.030 Urine Protein 30 mg/dL (NEG-TRACE) Urine Glucose (UA) Negative mg/dL (NEG) Urine Ketones (Stick) Trace mg/dL (NEG) Urine Blood Negative (NEG) Urine Nitrite Negative (NEG) Urine Bilirubin Negative (NEG) Urine Urobilinogen Dipstick 0.2 mg/dL (0.2 mg/dL) Urine Leukocyte Esterase Trace (NEG) Urine RBC Occ /HPF (0-2) Urine WBC 1-4 /HPF (0-4) Urine Squamous Epithelial Cells Mod /LPF Urine Bacteria Few /HPF (0-FEW) Urine Mucus Mod /LPF POC Urine HCG, Qualitative Hcg negative (Negative) EKG EKG [] Radiology/Procedures Radiology/Procedures [] Course & Med Decision Making Course & Med Decision Making Pertinent Labs and Imaging studies reviewed. (See chart for details) This is a 22-year-old female patient presenting to the ED today with STD concerns. Patient is in the ED with the boyfriend. I ordered STD treatment, i understand from the RN patient left the room stating she has to leave right away to get a call and is not planning to come back. Dragon Disclaimer Dragon Disclaimer This electronic medical record was generated, in whole or in part, using a voice recognition dictation system. Departure Departure Impression: Primary Impression: Concern about STD in female without diagnosis Disposition: 07 AGAINST MEDICAL ADVICE (Elopement) Condition: STABLE Referrals: NO PCP (PCP) Attending Signature Attending Signature I have reviewed the PA/IMPORT COORDINATION AND PRODUCTION HEAD's note and plan of care. I was available for consultation as needed during the patient's visit in the emergency department. I agree with the clinical impression, plan, and disposition. MERRILL ULRICH APRN Mar 23, 2018 14:11 SHIVAM BRITTON DO Mar 25, 2018 12:57
[2018-03-23 14:18] LABS: BACTERIA,URINE FEW /HPF (0-FEW); RBC,URINE OCC /HPF (0-2); SQUAMOUS EPITHELIAL CELL,UR MOD /LPF
== END 2018-03-23 14:20 | disposition left against medical advice (07) ==
LOC: ER 13:07
DX: Z11.3 Encounter for screening for infections with a predominantly sexual mode of transmission (principal)
CPT/HCPCS: 81001; 81025; 87086; 87491; 87591; 99283

== ENCOUNTER 2018-03-23 14:31 | Emergency (ER) | payer OTHER ==
[~2018-03-23] VITALS: Ht 165.1 cm; Wt 65.3 kg
[2018-03-23] MEDS ORDERED: metroNIDAZOLE 500 MG TABLET PO ONE (14:45)
[2018-03-23] MEDS ORDERED: AZITHROMYCIN 250 MG TABLET. PO ONE (14:45)
[2018-03-23] MEDS ORDERED: cefTRIAXone IM 250 MG VIAL IM ONE (14:45)
[2018-03-23 15:01] VITALS: BP 120/63
--- NOTE | 2018-03-23 15:02 | PHYS DOC ---
Past Medical History Past Medical History: STD Additional Past Medical Histor: TRICH Past Surgical History: No Surgical History Alcohol Use: None Drug Use: None Adult General Chief Complaint Chief Complaint: SEXUALLY TRANSMITTED DISEASE HPI HPI Patient is a 22 year old female who presents to be treated for STDs. Patient was seen in the ED by me a few minutes ago, she left the ED stating she has to go get a phone call and was gone for a while. She returns to be treated. Review of Systems Review of Systems Constitutional: Denies fever or chills [] GI: Denies abdominal pain, nausea, vomiting, bloody stools or diarrhea [] : Concern for STDs. Denies dysuria or hematuria [] Musculoskeletal: Denies back pain or joint pain [] Integument: Denies rash or skin lesions [] Neurologic: Denies headache, focal weakness or sensory changes [] All other systems were reviewed and found to be within normal limits, except as documented in this note. Current Medications Current Medications Current Medications Medications (Trade) Dose Ordered Sig/Larissa Start Time Stop Time Status Last Admin Dose Admin Azithromycin (Zithromax) 1,000 mg 1X ONCE 03/23/18 14:45 03/23/18 14:46 DC 03/23/18 15:09 1,000 MG Ceftriaxone Sodium (Rocephin Im) 250 mg 1X ONCE 03/23/18 14:45 03/23/18 14:46 DC 03/23/18 15:09 250 MG Metronidazole (Flagyl) 2,000 mg 1X ONCE 03/23/18 14:45 03/23/18 14:46 DC 03/23/18 15:08 2,000 MG Allergies Allergies Allergies Coded Allergies Type Severity Reaction Last Updated Verified No Known Drug Allergies 08/08/13 No Physical Exam Physical Exam Constitutional: Well developed, well nourished, no acute distress, non-toxic appearance. [] Abdomen: Bowel sounds normal, soft, no tenderness, no masses, no pulsatile masses. [] Skin: Warm, dry, no erythema, no rash. [] Back: No tenderness, no CVA tenderness. [] Extremities: No tenderness, no cyanosis, no clubbing, ROM intact, no edema. [] Neurologic: Alert and oriented X 3, normal motor function, normal sensory function, no focal deficits noted. [] Psychologic: Affect normal, judgement normal, mood normal. [] Current Patient Data Vital Signs Vital Signs Date Time Temp Pulse Resp B/P (MAP) Pulse Ox O2 Delivery O2 Flow Rate FiO2 03/23/18 15:01 98.2 57 18 120/63 (82) 100 Room Air 98.2 EKG EKG [] Radiology/Procedures Radiology/Procedures [] Course & Med Decision Making Course & Med Decision Making Pertinent Labs and Imaging studies reviewed. (See chart for details) Patient is in the ED for STD treatment. Prophylaxis treatment provided. Education provided on STDs. Dragon Disclaimer Dragon Disclaimer This electronic medical record was generated, in whole or in part, using a voice recognition dictation system. Departure Departure Impression: Primary Impression: Concern about STD in female without diagnosis Disposition: HOME, SELF-CARE Condition: STABLE Referrals: NO PCP (PCP) GOVIND COLE Jr, MD follow up in one week Patient Instructions: Sexually Transmitted Disease Additional Instructions: You were treated for sexually transmitted diseases. Please use protection at all times. Contact all your sex partners, let them know you were treated for STDs and ask them to seek treatment too. Follow-up with your TRACK LAYING MACHINE OPERATOR on the provided TRACK LAYING MACHINE OPERATOR Attending Signature Attending Signature I have reviewed the PA/MILKING MACHINE MECHANIC's note and plan of care. I was available for consultation as needed during the patient's visit in the emergency department. I agree with the clinical impression, plan, and disposition. MERRILL ULRICH APRN Mar 23, 2018 15:02 SHIVAM BRITTON DO Mar 25, 2018 12:59
== END 2018-03-23 15:46 | disposition home or self-care (01) ==
LOC: ER 14:31
DX: Z11.3 Encounter for screening for infections with a predominantly sexual mode of transmission (principal)
CPT/HCPCS: 96372; 99283; J0696; Q0144

== ENCOUNTER 2018-06-04 19:36 | Emergency (ER) | payer SELFPAY ==
[~2018-06-04] VITALS: Ht 165.1 cm; Wt 68.0 kg
[~2018-06-04 19:36] MED LIST changes: +METR-34 PO; -METR-84 PO
[2018-06-04 20:26] VITALS: BP 102/56
--- NOTE | 2018-06-04 21:32 | PHYS DOC ---
Past Medical History Past Medical History: No Pertinent History, STD Additional Past Medical Histor: TRICH Past Surgical History: No Surgical History Alcohol Use: Occasionally Drug Use: None Adult General Chief Complaint Chief Complaint: VAGINAL PROBLEM HPI HPI Patient is a 22 year old female who presents initially complaining of vaginal bleeding for 2 weeks. After long conversation, patient states she has a Mirena and typically has spotting and light bleeding in between her cycles. She states she is not here to be evaluated for the vaginal bleeding, she states she knows her boyfriend has been cheating on her and would like to be treated for STDs. Review of Systems Review of Systems Constitutional: Denies fever or chills [] GI: Reports vaginal bleeding and concern for STDs. Denies abdominal pain, nausea , vomiting, bloody stools or diarrhea [] : Denies dysuria or hematuria [] Musculoskeletal: Denies back pain or joint pain [] Integument: Denies rash or skin lesions [] Neurologic: Denies headache, focal weakness or sensory changes [] All other systems were reviewed and found to be within normal limits, except as documented in this note. Current Medications Current Medications Current Medications Medications (Trade) Dose Ordered Sig/Larissa Start Time Stop Time Status Last Admin Dose Admin Azithromycin (Zithromax) 1,000 mg 1X ONCE 06/04/18 21:30 06/04/18 21:31 Ceftriaxone Sodium (Rocephin Im) 250 mg 1X ONCE 06/04/18 21:30 06/04/18 21:31 Metronidazole (Flagyl) 2,000 mg 1X ONCE 06/04/18 21:30 06/04/18 21:31 Allergies Allergies Allergies Coded Allergies Type Severity Reaction Last Updated Verified No Known Drug Allergies 08/08/13 No Physical Exam Physical Exam Constitutional: Well developed, well nourished, no acute distress, non-toxic appearance. [] Abdomen: Bowel sounds normal, soft, no tenderness, no masses, no pulsatile masses. [] Pelvic exam-patient refused Skin: Warm, dry, no erythema, no rash. [] Back: No tenderness, no CVA tenderness. [] Extremities: No tenderness, no cyanosis, no clubbing, ROM intact, no edema. [] Neurologic: Alert and oriented X 3, normal motor function, normal sensory function, no focal deficits noted. [] Psychologic: Affect normal, judgement normal, mood normal. [] Current Patient Data Vital Signs Vital Signs Date Time Temp Pulse Resp B/P (MAP) Pulse Ox O2 Delivery O2 Flow Rate FiO2 06/04/18 20:26 98.3 70 16 102/56 (71) 98 Room Air 98.3 EKG EKG [] Radiology/Procedures Radiology/Procedures [] Course & Med Decision Making Course & Med Decision Making Pertinent Labs and Imaging studies reviewed. (See chart for details) This is a 22-year-old female patient presenting to the ED today initially complaining of vaginal bleeding for 2 weeks then stating she is here to be treated for STDs. I recommended she still follows up with an PASSENGER CAR CONDUCTOR for the vaginal bleeding. She was treated prophylaxis for STDs and discharged. She refused to be tested, she states she already knows what she has. Dragon Disclaimer Dragon Disclaimer This electronic medical record was generated, in whole or in part, using a voice recognition dictation system. Departure Departure Impression: Primary Impression: Concern about STD in female without diagnosis Additional Impression: Dysfunctional uterine bleeding Disposition: HOME, SELF-CARE Condition: STABLE Referrals: NO PCP (PCP) JENA FUNES MD Follow up with your doctor or the provided PASSENGER CAR CONDUCTOR in 1 week Patient Instructions: Sexually Transmitted Disease, Uterine Bleeding, Dysfunctional, [id number] Additional Instructions: You were treated for sexually transmitted diseases in the emergency room. Follow -up with your doctor or the provided PASSENGER CAR CONDUCTOR or your own PASSENGER CAR CONDUCTOR if you have one in the next 1 week. Come back to the ED at any point you start soaking more than 1 feminine pad an hour. Use protection at all times, no sex for 2 weeks. Contact all your partners and let them know you were treated for STDs Problem Qualifiers MERRILL ULRICH APRN Jun 04, 2018 21:32
[2018-06-04] MEDS: metroNIDAZOLE 500 MG TABLET PO ONE (22:01)
[2018-06-04] MEDS: AZITHROMYCIN 250 MG TABLET. PO ONE (22:01)
[2018-06-04] MEDS: cefTRIAXone IM 250 MG VIAL IM ONE (22:09)
== END 2018-06-04 22:08 | disposition home or self-care (01) ==
LOC: ER 19:36
DX: N93.8 Other specified abnormal uterine and vaginal bleeding (principal); Z20.2 Contact with and (suspected) exposure to infections with a predominantly sexual mode of transmission
CPT/HCPCS: 96372; 99283; J0696; Q0144

== ENCOUNTER 2018-07-14 20:54 | Emergency (ER) | payer SELFPAY ==
[~2018-07-14] VITALS: Ht 152.4 cm; Wt 68.0 kg
[2018-07-14 21:36] LABS: BILIRUBIN,URINE NEGATIVE (NEG); CLARITY,URINE CLEAR; COLOR,URINE YELLOW; NITRITE,URINE NEGATIVE (NEG); PROTEIN,URINE NEGATIVE (NEG-TRACE); UROBILINOGEN,URINE 0.2 mg/dL (0.2 mg/dL)
[2018-07-14 21:45] LABS: SQUAMOUS EPITHELIAL CELL,UR MANY /LPF
[2018-07-14 21:46] LABS: BACTERIA,URINE 0 /HPF (0-FEW); TRICHOMONAS,URINE PRESENT
[2018-07-14 22:00] VITALS: BP 104/59
[2018-07-14] MEDS ORDERED: metroNIDAZOLE 500 MG TABLET PO ONE (22:15)
[2018-07-14] MEDS ORDERED: cefTRIAXone IM 250 MG VIAL IM ONE (22:15)
[2018-07-14] MEDS ORDERED: AZITHROMYCIN 250 MG TABLET. PO ONE (22:15)
--- NOTE | 2018-07-14 22:15 | PHYS DOC ---
Past Medical History Past Medical History: No Pertinent History, STD Additional Past Medical Histor: TRICH (MERRILL ULRICH APRN) Past Surgical History: No Surgical History (MERRILL ULRICH APRN) Alcohol Use: Occasionally Drug Use: None (MERRILL ULRICH APRN) Adult General Chief Complaint Chief Complaint: SEXUALLY TRANSMITTED DISEASE [facility] HPI Patient is a 22 year old female who presents complaining of vaginal discharge that began today, patient states she was here a month ago was treated for STDs, resumed unprotected sex with "the baby daddy"who was not treated, she states her symptoms of resumed. (MERRILL ULRICH APRN) Review of Systems Review of Systems Constitutional: Denies fever or chills [] Eyes: Denies change in visual acuity, redness, or eye pain [] HENT: Denies nasal congestion or sore throat [] Respiratory: Denies cough or shortness of breath [] Cardiovascular: No additional information not addressed in HPI [] GI: Reports vaginal discharge. Denies abdominal pain, nausea, vomiting, bloody stools or diarrhea [] : Denies dysuria or hematuria [] Musculoskeletal: Denies back pain or joint pain [] Integument: Denies rash or skin lesions [] Neurologic: Denies headache, focal weakness or sensory changes [] All other systems were reviewed and found to be within normal limits, except as documented in this note. (MERRILL ULRICH APRN) Current Medications Current Medications Current Medications Medications (Trade) Dose Ordered Sig/Larissa Start Time Stop Time Status Last Admin Dose Admin Azithromycin (Zithromax) 1,000 mg 1X ONCE 07/14/18 22:15 07/14/18 22:16 DC 07/14/18 22:50 1,000 MG Ceftriaxone Sodium (Rocephin Im) 250 mg 1X ONCE 07/14/18 22:15 07/14/18 22:16 DC 07/14/18 22:49 250 MG Metronidazole (Flagyl) 2,000 mg 1X ONCE 07/14/18 22:15 07/14/18 22:16 DC 07/14/18 22:50 2,000 MG (RAJI ALEJANDRO MD) Allergies Allergies Allergies Coded Allergies Type Severity Reaction Last Updated Verified No Known Drug Allergies 08/08/13 No (RAJI ALEJANDRO MD) Physical Exam Physical Exam Constitutional: Well developed, well nourished, no acute distress, non-toxic appearance. [] HENT: Normocephalic, atraumatic, bilateral external ears normal, oropharynx moist, no oral exudates, nose normal. [] Eyes: PERRLA, EOMI, conjunctiva normal, no discharge. [] Neck: Normal range of motion, no tenderness, supple, no stridor. [] Cardiovascular:Heart rate regular rhythm, no murmur [] Lungs & Thorax: Bilateral breath sounds clear to auscultation [] Pelvic exam-patient refused Abdomen: Bowel sounds normal, soft, no tenderness, no masses, no pulsatile masses. [] Skin: Warm, dry, no erythema, no rash. [] Back: No tenderness, no CVA tenderness. [] Extremities: No tenderness, no cyanosis, no clubbing, ROM intact, no edema. [] Neurologic: Alert and oriented X 3, normal motor function, normal sensory function, no focal deficits noted. [] Psychologic: Affect normal, judgement normal, mood normal. [] (MERRILL ULRICH APRN) Current Patient Data Vital Signs Vital Signs Date Time Temp Pulse Resp B/P (MAP) Pulse Ox O2 Delivery O2 Flow Rate FiO2 07/14/18 22:00 98.0 69 20 104/59 (74) 100 Room Air 98.0 (RAJI ALEJANDRO MD) Lab Values Laboratory Tests Test 07/14/18 21:10 07/14/18 21:27 Urine Collection Type Unknown Urine Color Yellow Urine Clarity Clear Urine pH 6.0 Urine Specific [place] >=1.030 Urine Protein Negative mg/dL (NEG-TRACE) Urine Glucose (UA) Negative mg/dL (NEG) Urine Ketones (Stick) Negative mg/dL (NEG) Urine Blood Trace (NEG) Urine Nitrite Negative (NEG) Urine Bilirubin Negative (NEG) Urine Urobilinogen Dipstick 0.2 mg/dL (0.2 mg/dL) Urine Leukocyte Esterase Negative (NEG) Urine RBC 1-2 /HPF (0-2) Urine WBC 1-4 /HPF (0-4) Urine Squamous Epithelial Cells Many /LPF Urine Bacteria 0 /HPF (0-FEW) Urine Mucus Marked /LPF Urine Trichomonas Present POC Urine HCG, Qualitative Hcg negative (Negative) (RAJI ALEJANDRO MD) EKG EKG [] (MERRILL ULRICH APRN) Radiology/Procedures Radiology/Procedures [] (MERRILL ULRICH APRN) Course & Med Decision Making Course & Med Decision Making Pertinent Labs and Imaging studies reviewed. (See chart for details) This is a 22-year-old female patient presenting to the ED with STD concerns, she was seen a month ago, treated for STDs, presumed unprotected sex with the mind was not treated. Patient is positive for Trichomonas. Talked to patient extensively about using protection, and getting the baby dirty to be treated. Patient is given treatment in the Ed. D/c to home (MERRILL ULRICH APRN) Course & Med Decision Making Staff Physician Addendum: I was working in the ER during the course of this patient's visit. I was available for consultation as needed, but I was not directly involved in the care of this patient. (RAJI ALEJANDRO MD) Dragon Disclaimer Dragon Disclaimer This electronic medical record was generated, in whole or in part, using a voice recognition dictation system. (MERRILL ULRICH APRN) Departure Departure Impression: Primary Impression: Trichomonal vaginitis Disposition: HOME, SELF-CARE Condition: STABLE Referrals: NO PCP (PCP) follow up with the health department Patient Instructions: Sexually Transmitted Disease, [id number] Additional Instructions: You tested positive for Trichomonas-this is a sexually transmitted disease, we treated you in the ER. Your partner needs to be treated. Please do not have sex for one week, we recommended your partner gets treated before you resume sexual intercourse. Use protection at all times. Follow-up with the health department for further concerns. MERRILL ULRICH APRN Jul 14, 2018 22:15 RAJI ALEJANDRO MD Jul 20, 2018 08:15
== END 2018-07-14 22:48 | disposition home or self-care (01) ==
LOC: ER 20:54
DX: A59.01 Trichomonal vulvovaginitis (principal)
CPT/HCPCS: 81001; 81025; 96372; 99283; J0696; Q0144

== ENCOUNTER 2018-11-15 13:50 | Emergency (ER) | payer SELFPAY ==
[~2018-11-15] VITALS: Ht 172.7 cm; Wt 68.0 kg
[2018-11-15 14:25] VITALS: BP 111/57
[2018-11-15 15:27] LABS: BILIRUBIN,URINE NEGATIVE (NEG); CLARITY,URINE CLEAR; COLOR,URINE YELLOW; NITRITE,URINE NEGATIVE (NEG); PH,URINE 6.5; PROTEIN,URINE NEGATIVE (NEG-TRACE)
--- NOTE | 2018-11-15 15:27 | PHYS DOC ---
Past Medical History Past Medical History: No Pertinent History Additional Past Medical Histor: TRICH Past Surgical History: No Surgical History Alcohol Use: Occasionally Drug Use: Marijuana Adult General Chief Complaint Chief Complaint: VAGINAL PROBLEM HPI HPI Patient is a 22 year old female that presents stating she's been in vaginal discharge since Friday. The patient describes the discharge grading color also states she's been having dark brown discharge as well. Denies any pain at this time. Review of Systems Review of Systems Constitutional: Denies fever or chills [] Eyes: Denies change in visual acuity, redness, or eye pain [] HENT: Denies nasal congestion or sore throat [] Respiratory: Denies cough or shortness of breath [] Cardiovascular: No additional information not addressed in HPI [] GI: Denies abdominal pain, nausea, vomiting, bloody stools or diarrhea [] : Reports vaginal discharge Musculoskeletal: Denies back pain or joint pain [] Integument: Denies rash or skin lesions [] Neurologic: Denies headache, focal weakness or sensory changes [] Endocrine: Denies polyuria or polydipsia [] Complete systems were reviewed and found to be within normal limits, except as documented in this note. Current Medications Current Medications Current Medications Medications (Trade) Dose Ordered Sig/Larissa Start Time Stop Time Status Last Admin Dose Admin Azithromycin (Zithromax) 1,000 mg 1X ONCE 11/15/18 15:45 11/15/18 15:46 DC 11/15/18 15:56 1,000 MG Ceftriaxone Sodium (Rocephin Im) 250 mg 1X ONCE 11/15/18 15:45 11/15/18 15:46 DC 11/15/18 15:56 250 MG Allergies Allergies Allergies Coded Allergies Type Severity Reaction Last Updated Verified No Known Drug Allergies 08/08/13 No Physical Exam Physical Exam Constitutional: Well developed, well nourished, no acute distress, non-toxic appearance. [] HENT: Normocephalic, atraumatic, bilateral external ears normal, oropharynx moist, no oral exudates, nose normal. [] Eyes: PERRLA, EOMI, conjunctiva normal, no discharge. [] Neck: Normal range of motion, no tenderness, supple, no stridor. [] Cardiovascular:Heart rate regular rhythm, no murmur [] Lungs & Thorax: Bilateral breath sounds clear to auscultation [] Abdomen: Bowel sounds normal, soft, no tenderness, no masses, no pulsatile masses. [] Skin: Warm, dry, no erythema, no rash. [] Back: No tenderness, no CVA tenderness. [] Extremities: No tenderness, no cyanosis, no clubbing, ROM intact, no edema. [] Neurologic: Alert and oriented X 3, normal motor function, normal sensory function, no focal deficits noted. [] Psychologic: Affect normal, judgement normal, mood normal. [] Pelvic Exam: External exam is normal and without rash, No CMT, OS is closed, copious yellow discharge, uterus NTTP, No adnexal masses or tenderness noted Current Patient Data Vital Signs Vital Signs Date Time Temp Pulse Resp B/P (MAP) Pulse Ox O2 Delivery O2 Flow Rate FiO2 11/15/18 14:25 98.0 70 17 111/57 (75) 97 Room Air 98.0 Lab Values Laboratory Tests Test 11/15/18 13:57 11/15/18 14:25 Urine Collection Type Unknown Urine Color Yellow Urine Clarity Clear Urine pH 6.5 Urine Specific [place] 1.025 Urine Protein Negative mg/dL (NEG-TRACE) Urine Glucose (UA) Negative mg/dL (NEG) Urine Ketones (Stick) Negative mg/dL (NEG) Urine Blood Trace (NEG) Urine Nitrite Negative (NEG) Urine Bilirubin Negative (NEG) Urine Urobilinogen Dipstick 1.0 mg/dL (0.2 mg/dL) Urine Leukocyte Esterase Small (NEG) Urine RBC Occ /HPF (0-2) Urine WBC 5-10 /HPF (0-4) Urine Squamous Epithelial Cells Many /LPF Urine Bacteria Many /HPF (0-FEW) Urine Mucus Marked /LPF Urine Trichomonas Present POC Urine HCG, Qualitative Hcg negative (Negative) Microbiology 11/15/18 Wet Prep - Final, Complete EKG EKG [] Radiology/Procedures Radiology/Procedures [] Course & Med Decision Making Course & Med Decision Making Pertinent Labs and Imaging studies reviewed. (See chart for details) Will perform pelvic exam and get STD testing. Will treat for GC/Chlamydia. Will get UA as well. UA shows UTI, Wet Prep shows Trichomonas, and Bacterial Vaginosis. Will send home prescriptions. Dragon Disclaimer Dragon Disclaimer This electronic medical record was generated, in whole or in part, using a voice recognition dictation system. Departure Departure Impression: Primary Impression: Concern about STD in female without diagnosis Additional Impressions: Trichomonas vaginitis Urinary tract infection Bacterial vaginosis Disposition: 01 HOME, SELF-CARE Condition: STABLE Referrals: NO PCP (PCP) Patient Instructions: Sexually Transmitted Disease, Trichomoniasis, Urinary Tract Infection Additional Instructions: Thank you for visiting [facility]. We appreciate you trusting us with your care. If any additional problems come up don't hesitate to return to visit us. Please follow up with your primary care provider so they can plan additional care if needed and know about the problem that you had. If symptoms worsen come back to the Emergency Department. Any concerning symptoms that start such as chest pain, shortness of air, weakness or numbness on one side of the body, running high fevers or any other concerning symptoms return to the ER. You will be called with your results if positive in 48-72 hours. Scripts Cephalexin (KEFLEX) 500 Mg Capsule 1 CAP PO BID for 7 Days, #14 CAP Prov: SHIVAM BARR APRN 11/15/18 Metronidazole (FLAGYL) 500 Mg Tablet 1 TAB PO BID for 7 Days, #14 TAB Prov: SHIVAM BARR APRN 11/15/18 Problem Qualifiers Additional Impressions: Urinary tract infection Urinary tract infection type: acute cystitis Hematuria presence: with hematuria Qualified Codes: N30.01 - Acute cystitis with hematuria SHIVAM BARR APRN Nov 15, 2018 15:27
[2018-11-15] MEDS ORDERED: AZITHROMYCIN 250 MG TABLET. PO ONE (15:45)
[2018-11-15] MEDS ORDERED: cefTRIAXone IM 250 MG VIAL IM ONE (15:45)
[2018-11-15 15:46] LABS: BACTERIA,URINE MANY /HPF (0-FEW); RBC,URINE OCC /HPF (0-2); SQUAMOUS EPITHELIAL CELL,UR MANY /LPF; TRICHOMONAS,URINE PRESENT
[2018-11-15] MEDS ORDERED: CEPH-264 PO (16:18)
[2018-11-15] MEDS ORDERED: METR500T PO (16:18)
[2018-11-17 17:09] LABS: GC PROBE Negative (Negative)
== END 2018-11-15 16:36 | disposition home or self-care (01) ==
LOC: ER 13:50
DX: N30.01 Acute cystitis with hematuria (principal); A59.01 Trichomonal vulvovaginitis; N76.0 Acute vaginitis; B96.89 Other specified bacterial agents as the cause of diseases classified elsewhere; Z20.2 Contact with and (suspected) exposure to infections with a predominantly sexual mode of transmission
CPT/HCPCS: 81001; 81025; 87086; 87491; 87591; 96372; 99284; J0696; Q0111; Q0144

== ENCOUNTER 2019-05-01 14:06 | Emergency (ER) | payer OTHER ==
[~2019-05-01] VITALS: Ht 162.6 cm; Wt 63.6 kg
[~2019-05-01 14:06] MED LIST changes: +CEPH-264 PO; +DOXY-96 PO; -DOXY100T9 PO
[2019-05-01 14:24] VITALS: BP 128/61
--- NOTE | 2019-05-01 15:07 | PHYS DOC ---
Past Medical History Past Medical History: No Pertinent History Additional Past Medical Histor: TRICH Past Surgical History: No Surgical History Smoking Status: Current Every Day Smoker Alcohol Use: Occasionally Drug Use: Marijuana Adult General Chief Complaint Chief Complaint: OTHER COMPLAINTS [facility] Patient is a 23 year old female who presents with three positive at home tests and is worried that she might be . She states she just had an on March 09. Denies additional symptoms. [id number] Complete ROS were reviewed and found to be within normal limits, except as documented in the [facility] Allergies Allergies Allergies Coded Allergies Type Severity Reaction Last Updated Verified No Known Drug Allergies 08/08/13 No Physical Exam Physical Exam Constitutional: Well developed, well nourished, no acute distress, non-toxic appearance. [] HENT: Normocephalic, atraumatic, bilateral external ears normal, oropharynx moist, no oral exudates, nose normal. [] Eyes: PERRLA, EOMI, conjunctiva normal, no discharge. [] Neck: Normal range of motion, no tenderness, supple, no stridor. [] Cardiovascular:Heart rate regular rhythm, no murmur [] Lungs & Thorax: Bilateral breath sounds clear to auscultation [] Abdomen: Bowel sounds normal, soft, no tenderness, no masses, no pulsatile cara s. [] Skin: Warm, dry, no erythema, no rash. [] Neurologic: Alert and oriented X 3, normal motor function, normal sensory function, no focal deficits noted. [] Psychologic: Affect normal, judgement normal, mood normal. [] Current Patient Data Vital Signs Vital Signs Date Time Temp Pulse Resp B/P (MAP) Pulse Ox O2 Delivery O2 Flow Rate FiO2 05/01/19 14:24 97.7 83 16 128/61 (83) 100 Room Air 97.7 Lab Values Laboratory Tests Test 05/01/19 14:37 POC Urine HCG, Qualitative Hcg negative (Negative) EKG EKG [] Radiology/Procedures Radiology/Procedures [] Course & Med Decision Making Course & Med Decision Making Pertinent Labs and Imaging studies reviewed. (See chart for details) Ordered test which is negative. Will d/c home. Dragon Disclaimer Dragon Disclaimer This electronic medical record was generated, in whole or in part, using a voice recognition dictation system. Departure Departure Impression: Primary Impression: test negative Disposition: HOME, SELF-CARE Condition: STABLE Referrals: NO PCP (PCP) Additional Instructions: Thank you for visiting . We appreciate you trusting us with your care. If any additional problems come up don't hesitate to return to visit us. Please follow up with your primary care provider so they can plan additional care if needed and know about the problem that you had. If symptoms worsen come back to the Emergency Department. Any concerning symptoms that start such as chest pain, shortness of air, weakness or numbness on one side of the body, running high fevers or any other concerning symptoms return to the ER. SHIVAM BARR APRN May 01, 2019 15:07
== END 2019-05-01 15:20 | disposition home or self-care (01) ==
LOC: ER 14:06
DX: Z32.02 Encounter for pregnancy test, result negative (principal); F17.200 Nicotine dependence, unspecified, uncomplicated
CPT/HCPCS: 81025; 99282